=== PATIENT | female | born 1960 | race Caucasian/White ===

== ENCOUNTER 2017-06-09 15:38 | Emergency (ER) | payer OTHER ==
[~2017-06-09] VITALS: Ht 170.2 cm; Wt 85.0 kg
[~2017-06-09 15:38] MED LIST: AMLO-147 PO; ERGO500014 PO; HYDR-3012 PO; IBUP-1542 PO
[2017-06-09 15:54] VITALS: Ht 170.2 cm; Wt 85.0 kg
[2017-06-09 17:12] LABS: BASOPHIL # 0.1 10^3/ul (0.0-0.1); BASOPHILS % 0.5 % (0.0-2.0); EOSINOPHILS # 0.3 10^3/ul (0.0-0.5); EOSINOPHILS % 2.4 % (0.0-7.0); HEMATOCRIT 41.1 % (37.0-47.0); HEMOGLOBIN 13.6 g/dl (12.0-16.0); LYMPHOCYTES # 3.3 10^3/ul (0.8-2.9); LYMPHOCYTES % 27.3 % (15.0-51.0); MEAN CORPUSCULAR HEMOGLOBIN 29.2 pg (29.0-33.0); MEAN CORPUSCULAR HGB CONC 33.1 g/dl (32.0-37.0); MEAN CORPUSCULAR VOLUME 88.2 fl (82.0-101.0); MEAN PLATELET VOLUME 11.1 fl (7.4-10.4); MONOCYTE # 0.8 10^3/ul (0.3-0.9); MONOCYTES % 6.2 % (0.0-11.0); NEUTROPHILS % 63.4 % (39.0-77.0); PLATELET COUNT 314 10^3/UL (140-415); RED BLOOD COUNT 4.66 10^6/ul (4.20-5.40); RED CELL DISTRIBUTION WIDTH 14.9 % (11.5-14.5); WHITE BLOOD COUNT 12.1 10^3/ul (4.8-10.8)
[2017-06-09 17:32] LABS: ALBUMIN/GLOBULIN RATIO 1.08; BILIRUBIN,INDIRECT 0.2 mg/dl (0-1.1); BILIRUBIN,TOTAL 0.2 mg/dl (0.2-1.3); CALCIUM 9.9 mg/dl (8.4-10.2); CREATININE 0.78 mg/dl (0.44-1.00); POTASSIUM 4.1 mmol/L (3.5-5.1); TOTAL PROTEIN 7.7 g/dl (6.1-8.1)
[2017-06-09 17:33] LABS: ADD UMIC YES; UR ASCORBIC ACID NEGATIVE (NEGATIVE); UR BACTERIA FEW /HPF (NONE SEEN); UR BILIRUBIN (Dip) NEGATIVE (NEGATIVE); UR BLOOD (Dip) 3+ mg/dL (NEGATIVE); UR CLARITY CLEAR (CLEAR); UR COLOR YELLOW (YELLOW); UR GLUCOSE (Dip) NEGATIVE (NEGATIVE); UR KETONES (Dip) NEGATIVE (NEGATIVE); UR LEUKOCYTE ESTERASE (Dip) 1+ Leu/ul (NEGATIVE); UR NITRITE (Dip) NEGATIVE (NEGATIVE); UR RBC > 182 /HPF (0-5); UR SPECIFIC GRAVITY (Dip) 1.012 (1.003-1.030); UR TOTAL PROTEIN (Dip) NEGATIVE (NEGATIVE); UR UROBILINOGEN (Dip) NEGATIVE (NEGATIVE)
[2017-06-09] MEDS ORDERED: ONDANSETRON (ODT) 4 MG TAB ODT STA (17:41)
[2017-06-09] MEDS ORDERED: LIDOCAINE 1% (MDV) 20 ML INJ SC STA (17:41)
[2017-06-09] MEDS ORDERED: CEPH-443 PO (17:59)
[2017-06-09] MEDS ORDERED: CEFTRIAXONE 1 GM INJ IM ONE (18:00)
--- NOTE | 2017-06-09 18:18 | ERD ---
ER Documentation Chief Complaint Date/Time DATE: 06/09/17 TIME: 18:15 Chief Complaint vaginal bleeding started today pt states severe bleeding pelvic pain HPI 56 year old female 56-year-old female presents to the emergency department complaining of heavy vaginal bleeding since today. Patient states that the vaginal bleeding starts right after she uses the bathroom. Patient states that she has a history of a uterine tumor that will be removed on the of this month with her ELECTROMECHANICAL ENGINEER Dr. olivier. Patient denies any fever, she admits to having pelvic pain rating it moderate in severity. She denies any nausea, vomiting, diarrhea. She admits to having weakness. Menopause 8 years prior to being seen ROS All systems reviewed and are negative except as per history of present illness. Medications Home Meds Active Scripts Cephalexin* (Keflex*) 500 Mg Capsule, 500 MG PO QID for 7 Days, CAP Prov:MINNIE ECKERT PA-C 06/09/17 Reported Medications Ibuprofen* (Ibuprofen*) 600 Mg Tablet, 600 MG PO Q12 for PAIN, TAB 07/28/16 Hydroxyzine Hcl* (Hydroxyzine Hcl*) 50 Mg Tablet, 50 MG PO QHS for INSOMNIA, # 40 TAB 07/28/16 Amlodipine Besylate* (Amlodipine Besylate*) 10 Mg Tablet, 10 MG PO DAILY, #30 TAB 07/28/16 Ergocalciferol* (Drisdol* (Vitamin D2)) 50,000 Unit Capsule, 29311 UNIT PO Q7D, CAP 04/07/16 Allergies Allergies: Coded Allergies: No Known Allergy (Verified , 04/07/16) PMhx/Soc History of Surgery: No Anesthesia Reaction: No Hx Neurological Disorder: No Hx Respiratory Disorders: No Hx Cardiac Disorders: No Hx Psychiatric Problems: No Hx Miscellaneous Medical Probl: No Hx Alcohol Use: No Hx Substance Use: No Hx Tobacco Use: No Smoking Status: Never smoker Physical Exam Vitals Vital Signs Date Time Temp Pulse Resp B/P Pulse Ox O2 Delivery O2 Flow Rate FiO2 06/09/17 15:54 98.1 98 18 126/76 97 Physical Exam GENERAL: well-developed/well-nourished, in no apparent distress, non-toxic appearing HENT: NC/AT, moist mucous membranes EYES: Conjunctiva normal NECK: Supple, no lymphadenopathy PULM: CTA bilaterally, no rales, rhonchi, or wheezing heard CV: Normal S1S2, RRR, good capillary refill GI: Soft, non-distended, tender to palpation suprapubic region Normal bowel sounds, no masses or organomegaly felt on exam No gross peritonitis, no bruits Negative Rovsing, negative Jorgensen, negative McBurney's point, Negative CVAT BACK: No masses EXT: No clubbing, cyanosis, or edema NEURO: Alert and Orientated SKIN: Intact, normal turgor PSYCH: Normal mood and mentation Result Diagram: 06/09/17 1655 06/09/17 1655 Results 24 hrs Laboratory Tests Test 06/09/17 16:55 White Blood Count 12.110^3/ul Red Blood Count 4.6610^6/ul Hemoglobin 13.6g/dl Hematocrit 41.1% Mean Corpuscular Volume 88.2fl Mean Corpuscular Hemoglobin 29.2pg Mean Corpuscular Hemoglobin Concent 33.1g/dl Red Cell Distribution Width 14.9% Platelet Count 42503^3/UL Mean Platelet Volume 11.1fl Neutrophils % 63.4% Lymphocytes % 27.3% Monocytes % 6.2% Eosinophils % 2.4% Basophils % 0.5% Nucleated Red Blood Cells % 0.0/100WBC Neutrophils # (Manual) 7.710^3/ul Lymphocytes # 3.310^3/ul Monocytes # 0.810^3/ul Eosinophils # 0.310^3/ul Basophils # 0.110^3/ul Nucleated Red Blood Cells # 0.010^3/ul Urine Color YELLOW Urine Clarity CLEAR Urine pH 6.0 Urine Specific [place] 1.012 Urine Ketones NEGATIVEmg/dL Urine Nitrite NEGATIVEmg/dL Urine Bilirubin NEGATIVEmg/dL Urine Urobilinogen NEGATIVEmg/dL Urine Leukocyte Esterase 1+Olivia/ul Urine Microscopic RBC > 182/HPF Urine Microscopic WBC 79/HPF Urine Bacteria FEW/HPF Urine Hemoglobin 3+mg/dL Urine Glucose NEGATIVEmg/dL Urine Total Protein NEGATIVEmg/dl Sodium Level 139mmol/L Potassium Level 4.1mmol/L Chloride Level 105mmol/L Carbon Dioxide Level 27mmol/L Anion Gap 11 Blood Urea Nitrogen 11mg/dl Creatinine 0.78mg/dl Glucose Level 99mg/dl Calcium Level 9.9mg/dl Total Bilirubin 0.2mg/dl Direct Bilirubin 0.00mg/dl Indirect Bilirubin 0.2mg/dl Aspartate Amino Transf (AST/SGOT) 30IU/L Alanine Aminotransferase (ALT/SGPT) 45IU/L Alkaline Phosphatase 50IU/L Total Protein 7.7g/dl Albumin 4.0g/dl Globulin 3.70g/dl Albumin/Globulin Ratio 1.08 Current Medications Medications (Trade) Dose Ordered Sig/Luan Route PRN Reason Start Time Stop Time Status Last Admin Dose Admin Ceftriaxone Sodium (Rocephin) 1 gm ONCE ONCE IM 06/09/17 18:00 06/09/17 18:01 DC 06/09/17 17:53 Lidocaine (Xylocaine 1% (Mdv) 20 ml) 20 ml ONCE STAT SC 06/09/17 17:41 06/09/17 17:42 DC 06/09/17 17:47 Ondansetron HCl (Zofran Odt) 8 mg ONCE STAT ODT 06/09/17 17:41 06/09/17 17:42 DC Procedures/MDM This is a 56-year-old female presenting to the emergency department with history of fibroids with having a total hysterectomy on the of this month presents complaining of vaginal bleeding. A urinalysis done and showed evidence of infection. In the ED patient was given 1 g of ceftriaxone and was given prescription for Keflex for outpatient. No evidence of nephrolithiasis or pyelonephritis. CBC did not show any evidence of anemia. She had mild leukocytosis. Discussed with patient to continue to follow-up with her ELECTROMECHANICAL ENGINEER. Discussed to return to the ER for any worsening signs or symptoms and she understands and agrees with this plan Departure Diagnosis: Primary Impression: UTI (urinary tract infection) Urinary tract infection type: acute cystitis Hematuria presence: with hematuria Qualified Code: N30.01 - Acute cystitis with hematuria Additional Impression: Vaginal bleeding Condition: Stable Patient Instructions: Understanding Urinary Tract Infections (UTIs) Additional Instructions: FOLLOW UP WITH YOUR PRIMARY CARE PHYSICIAN TOMORROW.Return to this facility if you are not improving as expected. Take all medicines as directed. Return to this facility if you are not improving as expected. MINNIE ECKERT PA-C Jun 09, 2017 18:18
[2017-06-09] MEDS ORDERED: HYDR-906 PO (19:16)
[2017-06-09] MEDS ORDERED: HYDROCODONE/APAP (5/325) TAB PO STA (19:18)
[2017-06-09 19:27] VITALS: BP 141/85; PULSE 71; RESP 18; TEMP 98.3
== END 2017-06-09 19:29 | disposition home or self-care (01) ==
LOC: FTE 15:38
DX: N30.01 Acute cystitis with hematuria (principal)
CPT/HCPCS: 80053; 81001; 85025; 86850; 86900; 86901; 96372; J0696; Z7502; Z7610

== ENCOUNTER 2017-06-29 06:42 | Inpatient (IN) | payer OTHER ==
[~2017-06-29] VITALS: Ht 170.2 cm; Wt 83.8 kg
[2017-06-29] VITALS (18 sets, daily range): BP systolic 111–148; BP diastolic 60–72; PULSE 78–100; RESP 8–22; Ht 170.2 cm; Wt 83.8 kg
[~2017-06-29 06:42] MED LIST changes: +CEPH-443 PO; -ERGO500014 PO; -HYDR-3012 PO; +HYDR-906 PO; -IBUP-1542 PO; +LOSA100T7 PO
[2017-06-29] MEDS ORDERED: HYDR50CA2 PO (07:29)
--- NOTE | 2017-06-29 08:34 | PREOPHP ---
DATE OF ADMISSION: 06/29/2017 HISTORY OF PRESENT ILLNESS: The patient is a 56-year-old lady, V, para III, with 2 spontaneous abortions. Her last normal menstrual period was in 2010. She was admitted for exploratory laparotomy, RADHA and BSO. The patient complains of vaginal bleeding for the last few months. She is known to have a cervical polyp as well as a submucous fibroid. She has chronic pelvic pain for the last few months, and as mentioned it is getting worse up to the time of admission. She is known to have fibroid uterus and also she has some endometrial thickening. Endometrial biopsy was attempted, but the cervix was stenotic. She wanted to have a hysterectomy. Her Pap smear was unsatisfactory, but her HPV was negative. PAST MEDICAL HISTORY: No history of TB or asthma. No allergy. She has a history of high blood pressure and arthritis. SURGICAL HISTORY: She had thyroid surgery in 2015. She had back surgery in 1989. She is V, para III, with 2 abortions. FAMILY HISTORY: Father and grandfather on mother's side have heart disease. The father and grandfather on mother's side had a stroke. SOCIAL WORK THERAPIST HISTORY: She had menarche at the age of 10, every 28 days interval, 3-4 days duration and moderate in amount. She is V, para III. She had 3 normal deliveries. REVIEW OF SYSTEMS: CARDIOVASCULAR: No chest pains. LUNGS: No cough. GASTROINTESTINAL: No diarrhea, no vomiting. GENITOURINARY: No dysuria. PHYSICAL EXAMINATION: GENERAL: Reveals a conscious, coherent lady, not in acute distress. VITAL SIGNS: Her blood pressure 120/80, pulse rate 80 per minute, respirations 16 per minute. BREASTS: Within normal limits. HEART: Within normal limits. LUNGS: Within normal limits. ABDOMEN: Soft. No organomegaly. PELVIC: Revealed the cervix to be firm. Uterus about 8 week size and a mass noted outside of the cervix. Adnexa were negative for masses. RECTAL: Exam confirmed the pelvic findings. EXTREMITIES: No pedal edema. ADMITTING DIAGNOSES: 1. Cervical fornix submucous fibroids. 2. Post-menopausal bleeding. 3. Chronic pelvic pain. PLAN: The patient was planned to have the above procedure. Dictated By: Tri Garcia MD /tawanda/maribell /Document#: [id number]
[2017-06-29] MEDS ORDERED: FENTAnyl 50 MCG/ML VIAL ONE ×2 (10:21→12:31)
[2017-06-29] MEDS ORDERED: morphine SULFATE/PF (10 MG/10 ML) INJ ONE (10:21)
[2017-06-29] MEDS ORDERED: MIDAZOLAM 1 MG/ML 2 ML INJ ONE (10:21)
[2017-06-29] MEDS ORDERED: ETOMIDATE 20 MG INJ ONE (12:02)
[2017-06-29] MEDS ORDERED: ROCURONIUM 50 MG INJ ONE (12:03)
[2017-06-29] MEDS ORDERED: GLYCOPYRROLATE 1 MG INJ ONE (12:03)
[2017-06-29] MEDS ORDERED: LIDOCAINE 2% (SDV) 5 ML INJ ONE (12:03)
[2017-06-29] MEDS ORDERED: NEOSTIGMINE 3 MG/3 ML SYRINGE ONE (12:03)
[2017-06-29] MEDS ORDERED: ONDANSETRON 4 MG INJ ONE ×2 (12:08→12:31)
--- NOTE | 2017-06-29 12:17 | SIPON ---
Date/Time of Note Date/Time of Note DATE: 06/29/17 TIME: 12:15 Operative Report Preoperative Diagnosis FIBROID UTERUS ENDOMETRIAL THICKENING POST MENOPAUSAL BLEEDING CHRONIC PELVIC PAIN CERVICAL POLYP Postoperative Diagnosis FIBROID UTERUS ENDOMETRIAL THICEKENING POST MENOPAUSAL BLEEDING CHRONIC PELVIC PAIN CERVICAL POLYP Operation/Procedure Performed RADHA AND BSO Surgeon see signature line visitor services information assistant DR ROBLES Anesthesia: general Estimated blood loss: 250 - 300 ml's Transfusion Required none Specimen CERVIX BODY OF UTERUS BOTH TUBES AND OVARIES Grafts/Implants none Complications none ELIAS LIMA MD Jun 29, 2017 12:17
[2017-06-29] MEDS ORDERED: HYDROmorphONE (0.2 MG/ML) 10ML SYG IV ONE (12:31)
[2017-06-29] MEDS ORDERED: METOCLOPRAMIDE 10 MG INJ IV PRN (13:00)
[2017-06-29] MEDS ORDERED: MEPERIDINE 25 MG INJ IV PRN (13:00)
[2017-06-29] MEDS ORDERED: FENTAnyl 50 MCG/ML VIAL IV PRN ×3 (13:00)
[2017-06-29] MEDS ORDERED: ONDANSETRON 4 MG INJ IV PRN (13:00)
[2017-06-29] MEDS ORDERED: DIPHENHYDRAMINE 50 MG INJ IV PRN (13:00)
[2017-06-29] MEDS ORDERED: HYDROmorphONE (0.2 MG/ML) 10ML SYG IV PRN ×3 (13:00)
[2017-06-29] MEDS: HYDROmorphONE 1 MG/ML SYG IV PRN ×4 (15:18→22:29)
[2017-06-29] MEDS: LACTATED RINGER'S 1,000 ML IV SCH (18:09)
[2017-06-30] MEDS: LACTATED RINGER'S 1,000 ML IV SCH ×6 (01:30→21:39)
[2017-06-30 01:38] VITALS: BP 140/65; RESP 18
[2017-06-30] MEDS: HYDROmorphONE 1 MG/ML SYG IV PRN ×8 (01:59→19:46)
[2017-06-30] MEDS: DIPHENHYDRAMINE 25 MG CAP PO PRN ×2 (02:49→21:39)
--- NOTE | 2017-06-30 04:38 | OPR ---
DATE OF OPERATION: 06/29/2017 PREOPERATIVE DIAGNOSES: 1. Postmenopausal bleeding. 2. Endometrial thickening. 3. Anemia. 4. Multiple fibroids plus submucous fibroid. POSTOPERATIVE DIAGNOSES: 1. Postmenopausal bleeding. 2. Endometrial thickening. 3. Anemia. 4. Multiple fibroids plus submucous fibroid. 5. Pelvic adhesions. SURGEON: Dr. Garcia. FOOT DRILL OPERATOR: Dr. Smith. ANESTHESIA: General. ANESTHESIOLOGIST: Dr. Capellan. OPERATION PERFORMED: Exploratory laparotomy, total abdominal hysterectomy, bilateral salpingo-oophorectomy, and vaginal vault suspension, lysis of adhesions OPERATIVE PROCEDURE: Under general anesthesia, the patient was prepped and draped in the usual fashion for abdominal surgery. After checking for the effect of the anesthesia, a Pfannenstiel incision 12 cm skin incision was performed. The incision was carried from the skin up to the fascia. Upon opening the skin up to the fascia, small blood vessels were noted to be oozing and these were all cauterized. The fascia was opened transversely followed by splitting the muscles vertical and the peritoneum vertically. Upon opening the abdominal cavity, the upper abdominal organs were palpated, they were within normal limits. Then the uterus was noted to be about 14-week size with multiple fibroids noted. Then the self-retaining retractor was put in place. The bladder blade was put in place. The bowels were packed away from the operative field with the aide of 6 wet lap sponges and the upper blade was put in place. Then two 8-inch Kochers were placed at the paratubal and paraovarian ligament, these were used for traction. Then, the left round ligament was grasped with 2 Kochers and cut. A stick tie with 0 Vicryl was used to tie the left broad ligament, which was skeletonized for the development of the bladder flap. Then further development of the bladder flap. Then the left infundibulopelvic ligament was grasped with 2 Radha clamps and for backflow with straight Royer and cut. At first, a free tie with 0 Vicryl was used followed by Radha suture. Bleeders were checked and there was no bleeding noted. The same thing was done on the right side. The right round ligament was grasped with 2 Kochers and cut. A stick tie with 0 Vicryl was used and the right broad ligament was skeletonized for the development of the bladder flap. Then the utero-ovarian, uterotubal ligament was grasped with 2 Radha clamps, and good flow back with straight Royer and cut. At first, a free tie with 0 Vicryl was used followed by Radha suture. The right tube and the right ovary were taken out after the hysterectomy. The right tube and right ovary were deeply attached to the right pelvic wall. Then the broad ligament on both sides were skeletonized for the development of the bladder flap. Then the bladder blade was from the cervix by sharp and blunt dissection. The left uterine vessels were grasped with 2 Radha clamps, and for outflow with straight Royer and cut. A stick tie with 0 Vicryl was used on its clamp. Same thing was done on the right side. Bleeders were checked and there was no bleeding noted. Another Kochers were placed on each side and the body of the uterus was excised. After excising the body of the uterus, it was noted that there was a submucous fibroid, which was excised as well. The pedicle was noted to be cut. Then the remaining cervix was grasped with 2 single-tooth tenaculums. Once again, the pelvis was noted to be fairly very deep. Then once again, the cervix was from the bladder by sharp and blunt dissection. About 4 Kochers were placed at the paracervical tissue on the left and right side and on its on its clamp. The tissue was cut and a stick tie with 0 Vicryl was used. Bleeders were checked and there was no bleeding noted. A piece of cervix was excised and the remaining cervix was grasped with 2 single-tooth tenaculums. This was done because of the deep pelvis. Then, once again, the bladder was from the cervix by sharp and blunt dissection. Then about 4 more Kochers were placed at its paracervical tissue on the left and right side and on its clamp. The tissue was cut and a stick tie with 0 Vicryl was she was used. The left uterosacral ligament was grasped with the Royer and cut. A stick tie with 0 Vicryl was used and tied. The same thing was done on the right side. Then, the cervical vaginal angle was brought to view. The cervical vaginal angle was opened and the cervix was excised and the remaining vagina was grasped with Kochers. Then the rest of the cervix was excised. Then the vagina was sutured with continuous sutures with 0 Vicryl. Two layers were put in. The right angle of the vagina was sutured with right paracervical tissue, and in turn, tied with the right round ligament after checking for any bleeders, of which there were none. Same thing was done on the left side. Bleeders were checked and there was no bleeding noted. The right tube and ovary were lysed from the adhesions on the right side, and then the right tube and ovarian ligament and the paratubal ligament were grasped with 2 Radha clamps, and the tube and the ovary were excised. Free tie with 0 Vicryl was used followed by Radha suture. Bleeders were checked and there was no bleeding noted. After checking for any bleeders, in which there were none, irrigation was done with about 200 cc of normal saline. Once again, bleeders were checked and there was no bleeding noted. Then Fibrillar was left in area and the pelvis. Then after correct sponge count, needle count, and instrument count as confirmed by the lead principal technical architect and crm business analyst, the abdomen was closed in the usual fashion using 0 Vicryl for the peritoneum, 0 Vicryl for the muscles, for the fascia 0 Vicryl continuous stitch was used, followed by a few [id number] sutures for the subcutaneous tissue, which was closed with 3-0 Vicryl and the skin was closed with 3-0 Vicryl subcuticular suture was used. The patient tolerated the procedure well. ESTIMATED BLOOD LOSS: About 300 cc. Vital signs were stable during and after the procedure. Dictated By: Tri Garcia MD /tawanda/nely /Document#: [id number]
[2017-06-30] MEDS: MAGNESIUM HYDROXIDE 30ML CUP PO SCH ×2 (05:48→17:32)
[2017-06-30] MEDS ORDERED: BISACODYL 10 MG SUPP PR ONE ×3 (06:00→17:00)
[2017-06-30 06:09] LABS: BASOPHILS % 0.3 % (0.0-2.0); EOSINOPHILS # 0.1 10^3/ul (0.0-0.5); EOSINOPHILS % 0.6 % (0.0-7.0); HEMATOCRIT 33.7 % (37.0-47.0); HEMOGLOBIN 11.2 g/dl (12.0-16.0); LYMPHOCYTES % 14.2 % (15.0-51.0); MEAN CORPUSCULAR HEMOGLOBIN 30.7 pg (29.0-33.0); MEAN CORPUSCULAR HGB CONC 33.2 g/dl (32.0-37.0); MEAN CORPUSCULAR VOLUME 92.3 fl (82.0-101.0); MEAN PLATELET VOLUME 11.1 fl (7.4-10.4); MONOCYTES % 7.2 % (0.0-11.0); NEUTROPHIL # 10.8 10^3/ul (1.6-7.5); NEUTROPHILS % 77.4 % (39.0-77.0); PLATELET COUNT 259 10^3/UL (140-415); RED BLOOD COUNT 3.65 10^6/ul (4.20-5.40); RED CELL DISTRIBUTION WIDTH 14.9 % (11.5-14.5)
[2017-06-30 06:51] LABS: ALBUMIN 3.2 g/dl (3.3-4.9); BILIRUBIN,INDIRECT 0.5 mg/dl (0-1.1); BILIRUBIN,TOTAL 0.5 mg/dl (0.2-1.3); CALCIUM 8.5 mg/dl (8.4-10.2); CREATININE 0.68 mg/dl (0.44-1.00); POTASSIUM 3.6 mmol/L (3.5-5.1); TOTAL PROTEIN 6.4 g/dl (6.1-8.1)
[2017-06-30 07:34] VITALS: BP 138/64; RESP 20
[2017-06-30] MEDS: ONDANSETRON 4 MG INJ IV PRN ×2 (12:06→17:32)
[2017-06-30] MEDS ORDERED: OXYCODONE/ACETAMINOPHEN (5/325) TAB PO PRN ×3 (13:00)
[2017-06-30 14:59] VITALS: BP 155/61; RESP 20
[2017-06-30] MEDS ORDERED: MAGNESIUM HYDROXIDE 30ML CUP PO ONE (17:00)
[2017-06-30] MEDS ORDERED: IBUPROFEN 800 MG TAB PO PRN (17:00)
[2017-06-30 20:03] VITALS: BP 166/76; RESP 20
[2017-06-30 21:40] VITALS: BP 150/70; PULSE 95; RESP 18
[2017-07-01] MEDS: HYDROmorphONE 1 MG/ML SYG IV PRN (00:52)
[2017-07-01 02:24] VITALS: BP 166/77; RESP 20
[2017-07-01] MEDS: DIPHENHYDRAMINE 25 MG CAP PO PRN ×2 (05:06→09:25)
[2017-07-01] MEDS: MAGNESIUM HYDROXIDE 30ML CUP PO SCH ×2 (05:13→17:46)
[2017-07-01 05:24] LABS: BASOPHILS % 0.2 % (0.0-2.0); EOSINOPHILS % 0.2 % (0.0-7.0); HEMATOCRIT 37.1 % (37.0-47.0); HEMOGLOBIN 12.1 g/dl (12.0-16.0); LYMPHOCYTES # 1.9 10^3/ul (0.8-2.9); LYMPHOCYTES % 9.7 % (15.0-51.0); MEAN CORPUSCULAR HEMOGLOBIN 29.9 pg (29.0-33.0); MEAN CORPUSCULAR HGB CONC 32.6 g/dl (32.0-37.0); MEAN CORPUSCULAR VOLUME 91.6 fl (82.0-101.0); MONOCYTES % 5.3 % (0.0-11.0); NEUTROPHIL # 16.4 10^3/ul (1.6-7.5); NEUTROPHILS % 84.1 % (39.0-77.0); PLATELET COUNT 285 10^3/UL (140-415); RED BLOOD COUNT 4.05 10^6/ul (4.20-5.40); RED CELL DISTRIBUTION WIDTH 14.3 % (11.5-14.5); WHITE BLOOD COUNT 19.5 10^3/ul (4.8-10.8)
[2017-07-01 05:52] LABS: CREATININE 0.59 mg/dl (0.44-1.00); POTASSIUM 3.4 mmol/L (3.5-5.1)
[2017-07-01] MEDS: HYDROmorphONE 2 MG TAB PO PRN ×3 (07:27→20:38)
[2017-07-01 07:46] VITALS: BP 130/62; RESP 18
[2017-07-01] MEDS: LACTATED RINGER'S 1,000 ML IV SCH ×2 (09:25→17:47)
[2017-07-01] MEDS ORDERED: MAGNESIUM HYDROXIDE 30ML CUP PO ONE (11:30)
[2017-07-01] MEDS ORDERED: BISACODYL 10 MG SUPP PR ONE (11:30)
[2017-07-01 13:18] VITALS: BP 134/64; RESP 20
[2017-07-01 21:30] VITALS: BP 123/59; RESP 18
[2017-07-01] MEDS ORDERED: ZOLPIDEM 5 MG TAB PO ONE (23:00)
[2017-07-02] MEDS: LACTATED RINGER'S 1,000 ML IV SCH ×3 (01:30→08:36)
[2017-07-02 01:50] VITALS: BP 135/63; RESP 20
[2017-07-02] MEDS: HYDROmorphONE 2 MG TAB PO PRN ×3 (04:14→16:42)
[2017-07-02] MEDS: MAGNESIUM HYDROXIDE 30ML CUP PO SCH (05:49)
[2017-07-02 06:21] LABS: BASOPHILS % 0.1 % (0.0-2.0); EOSINOPHILS # 0.2 10^3/ul (0.0-0.5); EOSINOPHILS % 1.7 % (0.0-7.0); HEMATOCRIT 32.5 % (37.0-47.0); HEMOGLOBIN 10.9 g/dl (12.0-16.0); LYMPHOCYTES # 1.4 10^3/ul (0.8-2.9); MEAN CORPUSCULAR HEMOGLOBIN 30.7 pg (29.0-33.0); MEAN CORPUSCULAR HGB CONC 33.5 g/dl (32.0-37.0); MEAN CORPUSCULAR VOLUME 91.5 fl (82.0-101.0); MEAN PLATELET VOLUME 11.1 fl (7.4-10.4); MONOCYTE # 0.8 10^3/ul (0.3-0.9); MONOCYTES % 5.4 % (0.0-11.0); NEUTROPHIL # 11.5 10^3/ul (1.6-7.5); NEUTROPHILS % 82.3 % (39.0-77.0); PLATELET COUNT 235 10^3/UL (140-415); RED BLOOD COUNT 3.55 10^6/ul (4.20-5.40); RED CELL DISTRIBUTION WIDTH 14.2 % (11.5-14.5); WHITE BLOOD COUNT 13.9 10^3/ul (4.8-10.8)
[2017-07-02 07:18] VITALS: BP 137/66; RESP 20
[2017-07-02] MEDS ORDERED: AMLODIPINE 10 MG TAB PO SCH (09:00)
[2017-07-02] MEDS ORDERED: LOSARTAN 50 MG TAB PO SCH (09:00)
[2017-07-02] MEDS ORDERED: BISACODYL 10 MG SUPP PR ONE (11:30)
[2017-07-02] MEDS ORDERED: MAGNESIUM HYDROXIDE 30ML CUP PO ONE (11:30)
[2017-07-02 13:24] VITALS: BP 124/56; RESP 20
== END 2017-07-02 17:00 | disposition home or self-care (01) | DRG 743 ==
LOC: REC 06:42 → MS2 14:05
PROVIDERS: ADMIT Obstetrics & Gynecology; ATTEND Obstetrics & Gynecology
PROC: 0UTC0ZZ Resection of Cervix, Open Approach (ICD-10-PCS; 2017-06-29)
PROC: 0UN50ZZ Release Right Fallopian Tube, Open Approach (ICD-10-PCS; 2017-06-29)
PROC: 0UN00ZZ Release Right Ovary, Open Approach (ICD-10-PCS; 2017-06-29)
PROC: 0UT20ZZ Resection of Bilateral Ovaries, Open Approach (ICD-10-PCS; 2017-06-29)
PROC: 0UT70ZZ Resection of Bilateral Fallopian Tubes, Open Approach (ICD-10-PCS; 2017-06-29)
PROC: 0UT90ZZ Resection of Uterus, Open Approach (ICD-10-PCS; principal; 2017-06-29 10:00)
DX: D25.0 Submucous leiomyoma of uterus (principal); D64.9 Anemia, unspecified; R10.2 Pelvic and perineal pain; N73.6 Female pelvic peritoneal adhesions (postinfective); N95.0 Postmenopausal bleeding; N84.1 Polyp of cervix uteri; N88.2 Stricture and stenosis of cervix uteri; R93.8 Abnormal findings on diagnostic imaging of other specified body structures
CPT/HCPCS: 80048; 80053; 85025; 86850; 86900; 86901; 87086; 88305; J1170; J2250; J2274; J2405; J2710; J3010; J7120

== ENCOUNTER 2017-07-21 12:06 | Emergency (ER) | payer OTHER ==
[~2017-07-21] VITALS: Wt 81.8 kg
[~2017-07-21 12:06] MED LIST changes: -CEPH-443 PO; +HYDR50CA2 PO
[2017-07-21] MEDS ORDERED: CLOT30CR24 TOP (15:14)
[2017-07-21] MEDS ORDERED: CEPH-443 PO (15:14)
--- NOTE | 2017-07-21 15:16 | ERD ---
ER Documentation Chief Complaint Date/Time DATE: 07/21/17 TIME: 15:14 Chief Complaint s/p pelvic sx 3 wks ago, site red w draining HPI This 56-year-old female presents with complaints of some redness and pain at her hysterectomy wound which was performed [address] Wu. She denies any fevers, vomiting. She was concerned about the discharge and moisture. She has also had diarrhea for the last day with some rectal burning. She denies any blood ROS All systems reviewed and are negative except as per history of present illness. Medications Home Meds Active Scripts Clotrimazole* (Clotrimazole* AF) 1% - 30 Gm Cream.gm., 1 APPLIC TOP BID for 7 Days, TUB Prov:GENET TORRES MD 07/21/17 Cephalexin* (Keflex*) 500 Mg Capsule, 500 MG PO QID for 7 Days, CAP Prov:GENET TORRES MD 07/21/17 Hydrocodone/Acetaminophen ([place] 5-325 Tablet) 1 Each Tablet, 1 TAB PO Q6H Y for PAIN, #7 TAB Prov:MINNIE ECKERT PA-C 06/09/17 Reported Medications Hydroxyzine Pamoate* (Hydroxyzine Pamoate*) 50 Mg Capsule, 50 MG PO QHS, #30 CAP 06/29/17 Losartan Potassium* (Losartan Potassium*) 100 Mg Tablet, 100 MG PO DAILY, TAB 06/28/17 Amlodipine Besylate* (Amlodipine Besylate*) 10 Mg Tablet, 10 MG PO DAILY, #30 TAB 07/28/16 Allergies Allergies: Coded Allergies: No Known Allergy (Verified , 06/29/17) PMhx/Soc History of Surgery: Yes (THYROID SX, DISK SX ) Anesthesia Reaction: No Hx Neurological Disorder: No Hx Respiratory Disorders: No Hx Cardiac Disorders: Yes (HTN, ) Hx Psychiatric Problems: No Hx Miscellaneous Medical Probl: No Hx Alcohol Use: No Hx Substance Use: No Hx Tobacco Use: Yes Smoking Status: Current every day smoker Physical Exam Vitals Vital Signs Date Time Temp Pulse Resp B/P Pulse Ox O2 Delivery O2 Flow Rate FiO2 07/21/17 12:09 98.3 102 20 121/69 98 Physical Exam Const: [] Alert, [id number]. Head: Atraumatic Eyes: Normal Conjunctiva ENT: Normal External Ears, Nose and Mouth. Neck: Full range of motion..~ No meningismus. Resp: Clear to auscultation bilaterally Cardio: Regular rate and rhythm, no murmurs Abd: Soft, non tender, non distended. Normal bowel sounds Skin: No petechiae or rashes there are some irritation around the wound which is healing by secondary intention previous tiny dehiscence. There is no significant erythema, warmth or fluctuance. No significant pannus. Back: No midline or flank tenderness Ext: No cyanosis, or edema Neur: Awake and alert Psych: Normal Mood and Affect Procedures/MDM She presents with some irritation in the wound which is healing with a small dehiscence but by secondary intention. There is no signs of significant erythema or induration. Appears to be superficial irritation, possibly fungal. There is no evidence of any residual abscess or fluctuance. There is no signs of deep abdominal tenderness. Patient was treated empirically with Keflex and Motrin, Tylenol and instructions to follow-up with OB this week. She should return for fevers, vomiting, new or worsening symptoms. Departure Diagnosis: Primary Impression: Encounter for wound re-check Condition: Stable Patient Instructions: Post Op Wound Check, Pain Additional Instructions: Appears to be irritation likely from moisture. Be this week. Return for fevers , vomiting, new symptoms. Take Tylenol for pain. GENET TORRES MD Jul 21, 2017 15:16
== END 2017-07-21 15:47 | disposition home or self-care (01) ==
LOC: FTE 12:06
DX: T81.32XA Disruption of internal operation (surgical) wound, not elsewhere classified, initial encounter (principal); I10 Essential (primary) hypertension; F17.210 Nicotine dependence, cigarettes, uncomplicated; Y82.8 Other medical devices associated with adverse incidents
CPT/HCPCS: 99283

== ENCOUNTER 2018-03-31 09:01 | Inpatient (IN) | END 2018-04-03 12:55 | disposition home or self-care (01) | DRG 69 ==

== ENCOUNTER 2018-04-15 23:46 | Emergency (ER) | END 2018-04-16 06:14 | disposition home or self-care (01) ==

== ENCOUNTER 2018-05-16 14:17 | Emergency (ER) | END 2018-05-16 19:35 | disposition home or self-care (01) ==

== ENCOUNTER 2018-08-03 21:20 | Emergency (ER) | END 2018-08-04 05:48 | disposition home or self-care (01) ==